=== PATIENT | female | born 1980 | race Caucasian/White ===

== ENCOUNTER 2020-07-11 22:17 | Emergency (ER) | payer OTHER ==
[~2020-07-11] VITALS: Ht 167.6 cm; Wt 59.0 kg
[2020-07-12] MEDS ORDERED: BETAMETHASONE D15 G2 TOP (02:03)
[2020-07-12] MEDS ORDERED: FLUCONAZOLE150 MG PO (02:03)
== END 2020-07-12 02:48 | disposition home or self-care (01) ==
LOC: ER 22:17
DX: B37.3 Candidiasis of vulva and vagina (principal)